=== PATIENT | female | born 1935 | race Caucasian/White ===

== ENCOUNTER → 2016-07-07 | Outpatient (CLI) | payer OTHER ==
[~2016-07-07] VITALS: Ht 162.6 cm; Wt 79.7 kg
[~2016-07-07] MED LIST: ADULT LOW DOSE81 MG PO; ALLOPURINOL 10100 M1 PO; ASPIRIN EC81 M1 PO; CALCIUM OYSTER500 MG PO; CELEXA 10 MG TA10 M1 PO; CLONIDINE PO; DARVOCET-N 1001 EAC1 PO; EFFIENT10 MG PO; GABAPENTIN100 MG PO; GLUCOSAMINE HC500 MG PO; HYDRALAZINE 2525 M1 OR; HYDRALAZINE 2525 M1 PO; KLOR-CON 1010 MEQ PO; METHADONE HCL 110 M1 PO; METHADONE HCL 110 MG PO; NEURONTIN 300M300 M2 PO; OMEPRAZOLE 20 M20 M1 PO; REMERON15 MG PO; SIMVASTATIN40 MG PO; SYNTHROID100 MCG PO; TUMS PO; ZANTAC 150MG T150 M1 PO
--- NOTE | ~2016-07-07 | HPC ---
[facility] [place] [address] PAIN MANAGEMENT CONSULTATION Name: STEVEN DORAN Room #: REG [facility]#: [id number] Admission: 07/07/16 Attend Phys: Trevor Suresh MD Discharge: Date of : 33 Report #: [id number] THIS REPORT FOR: //name// CC: Shan Suresh DATE OF SERVICE: 07/07/2016 FOLLOWUP COMPLAINT: Here for another injection. FOLLOWUP HISTORY: The patient is a very pleasant 80-year-old female who has been seen in the pain clinic in the past. She has undergone epidural steroid injections. She has gleaned greater than 50% benefit from these procedures. She returns today indicating that she is having some increased pain in the left L5-S1 area. She rates her pain as a 5/10. She is having some difficulty walking and standing, all of which increased her pain and discomfort involving the left buttocks. She had not fallen in the last few months. She does note some weakness and finds use of a cane efficacious. PHYSICAL EXAMINATION: VITAL SIGNS: Blood pressure 146/71, pulse 87, respiratory rate 20 and room air O2 saturation is 97%. Height 5 feet 4 inches, weight 175 pounds, BMI is 30. MUSCULOSKELETAL: The patient has pain and discomfort radiating down into the left buttocks and posterior portion of the leg in the L5-S1 distribution. She notes numbness and weakness in this area. IMPRESSION: 1. Lumbar radiculopathy in the left L5-S1 distribution. 2. Status post instrumentation of the lower spine with rods at L4 and L5. 3. Hypothyroidism. 4. Hypercholesterolemia. RECOMMENDATIONS: We discussed the treatment options with the patient. Risks and benefits of another epidural steroid injection were discussed. Possible complications were reviewed. The patient would like to proceed. PROCEDURE NOTE: The patient was placed in the prone position. Fluoroscopy was used to identify the left L5-S1 nerve area. This area had been sterilely prepped with Betadine and infiltrated with 0.25% bupivacaine. Total of 80 mg Depo-Medrol, 40 mg triamcinolone and 2 mL of 0.25% bupivacaine was injected. The patient tolerated the procedure well. There were no complications. We would like to thank you for letting us participate in her care. We hope she continues to improve. A prescription for methadone 5 mg [place] [address] PAIN MANAGEMENT CONSULTATION Name: DORANSTEVEN HURD Room #: REG [facility]#: [id number] Admission: 07/07/16 Attend Phys: Trevor Suresh MD Discharge: Date of : 33 Report #: [id number] p.o. every day has been written. She will follow up in the future as needed. A total of 4 seconds fluoroscopy time was used. By: [id number] Trevor Suresh MD /marianela
[2016-07-07 10:10] VITALS: BP 146/71
== END ==
LOC: PAIN 07:28
DX: M54.16 Radiculopathy, lumbar region (principal); E78.5 Hyperlipidemia, unspecified; E78.00 Pure hypercholesterolemia, unspecified

== ENCOUNTER → 2016-08-06 | Outpatient (CLI) | payer OTHER ==
[~2016-08-06] VITALS: Ht 167.6 cm; Wt 78.1 kg
--- NOTE | ~2016-08-06 | HPC ---
[facility] [place] [address] PAIN MANAGEMENT CONSULTATION Name: STEVEN DORAN Room #: REG [facility]#: [id number] Admission: 08/06/16 Attend Phys: Trevor Suresh MD Discharge: Date of : 33 Report #: [id number] THIS REPORT FOR: //name// CC: REZA Suresh DATE OF SERVICE: 08/06/2016 FOLLOWUP COMPLAINT: Pain is improved after the last injection, but has worsened over the last few weeks. FOLLOWUP HISTORY: The patient is a very pleasant 80-year-old female who has been seen in the pain clinic because of lumbar radiculopathy. As you recall, she has undergone epidural steroid injections and gleaned greater than 50% improvement. She notes that her pain is a 2 at this point, but has noted some pain radiating down into her buttocks with numbness and tingling involving the left leg more so today than right. She has not fallen since we saw her last. She does find that she continues to have some weakness and ambulates with use of her cane. PHYSICAL EXAMINATION: Blood pressure 123/70, pulse 88, respiratory rate 16, room air saturation is 95%. Height is 5 feet 6 inches, weight 78 kilograms. BMI is 27. The patient has pain and discomfort radiating down into the lumbar area with more discomfort on the left today. IMPRESSION: 1. Lumbar radiculopathy in the left L5-S1 distribution. 2. Status post instrumentation of the lower spine with rods at the L4-L5 area. 3. Hypothyroidism. 4. Hypercholesterolemia. RECOMMENDATIONS: We discussed treatment options with the patient. Risks and benefits of an epidural steroid injection were again discussed. Possible complications which could include but are not limited to infection, increased muscle soreness, headache, bleeding, muscle trauma, nerve trauma were explained. The patient elects to proceed. PROCEDURE NOTE: The patient was placed in the prone position. Fluoroscopy was used to identify the L5-S1 distribution and at this level, a midline 17-gauge Tuohy with loss of resistance technique was used to gain access to the epidural space. There was no CSF, heme or paresthesia. A total of 80 mg Depo-Medrol, 40 mg triamcinolone and 2 mL of 0.25% bupivacaine was injected. The patient tolerated the procedure well. [place] [address] PAIN MANAGEMENT CONSULTATION Name: STEVEN DORAN Room #: REG [facility]#: [id number] Admission: 08/06/16 Attend Phys: Trevor Suresh MD Discharge: Date of : 33 Report #: [id number] We would like to thank you for letting us participate in her care. We hope she continues to improve. By: [id number] Trevor Suresh MD /nt
[2016-08-06 10:35] VITALS: BP 123/70
== END | disposition home or self-care (01) ==
LOC: PAIN 05:51
DX: M54.16 Radiculopathy, lumbar region (principal); G89.29 Other chronic pain; E03.9 Hypothyroidism, unspecified; E78.00 Pure hypercholesterolemia, unspecified; Z98.890 Other specified postprocedural states

== ENCOUNTER → 2017-07-06 | Outpatient (CLI) | payer OTHER ==
[~2017-07-06] VITALS: Ht 165.1 cm; Wt 70.9 kg
--- NOTE | ~2017-07-06 | HPC ---
[facility] [place] [address] [place] [address] PAIN MANAGEMENT CONSULTATION Name: STEVEN DORAN Room #: REG [facility].#: [id number] Admission: 07/06/17 Attend Phys: Trevor Suresh MD Discharge: Date of : 33 Report #: [id number] THIS REPORT FOR: //name// CC: Shan Suresh DATE OF SERVICE: 07/06/2017 FOLLOWUP COMPLAINT: "I would like to get my medications renewed and having pain that is going down into my right leg." FOLLOWUP HISTORY: The patient is an 81-year-old female, who has been seen and followed in the pain clinic because of lumbar radiculopathy. As you recall, she has had problems with her low back. She has had placement of rods and screws in the lower portion of her back for stabilization. She still has pain and discomfort, which can be problematic. She rates her pain overall as a 5/10 today. It involves the lower portion of her back with pain radiating down into the right leg. Notes that she has continued to have some difficulty walking. She does ambulate with use of a cane. Denies any problems with her medications. She feels that the methadone has worked quite well for over the years. She is taking 5 mg 1 p.o. b.i.d. This is successful in helping decrease pain and discomfort. She tries to stay as active as possible. She does note that activities of daily living are somewhat curtailed secondary to her pain. Pain is exacerbated with walking as well as prolonged standing. Rest, use of medication, and repositioning can be of some assistance. ALLERGIES: No known drug allergies. CURRENT MEDICATIONS: 1. Methadone 10 mg one-half tablet daily a.m. and p.m. 2. Celexa 10 mg daily. 3. Glucosamine 500 mg, total of 1500 mg in the evening. 4. Omeprazole 20 mg. 5. Calcium/Tums. 6. Remeron 15 mg at bedtime. 7. Allopurinol 100 mg. 8. Aspirin 81 mg. 9. Simvastatin 40 mg. 10. Neurontin 300 mg b.i.d. 11. Synthroid 100 mcg. PAIN CLINIC ASSESSMENT: 1. History of osteoarthritis with some hadley placements and intertrochanteric screws. 2. Height 5 feet 5 inches. Weight 156 pounds, BMI [place] [address] PAIN MANAGEMENT CONSULTATION Name: STEVEN DORAN Room #: REG [facility]#: [id number] Admission: 07/06/17 Attend Phys: Trevor Suresh MD Discharge: Date of : 33 Report #: [id number] 3. Vital Signs: Blood pressure is 114/73, pulse 102, respiratory rate 20, room air saturation is 96%. 4. Pain intensity 5/10. 5. Fall Risk: The patient has not fallen in the last 3 months. She does need some assistance with walking and uses a cane. 6. The patient is not on a blood thinner 7. History of hypertension. The patient is not being treated for hypertension. 8. Opioid therapy, greater than 6 weeks. The patient has signed a contract and gets her medication from only one source. 9. Risk assessment tool, 0 which is low. 10. Functional assessment tool, 35/70 with mild encumbrance of activities of daily living secondary to pain. 11. Recreational use of drugs: The patient denies. 12. Tobacco: The patient has never smoked. 13. Alcohol: The patient denies use of alcoholic beverages. PHYSICAL EXAMINATION: GENERAL: The patient is a well-developed white female. Appears her stated age. She is alert and oriented x 3. Affect is appropriate. Speech is fluent. HEENT: The patient is wearing glasses. Sclerae are nonicteric. Mucous membranes are moist. Hearing is within normal limits, may be decreased. NECK: Without adenopathy or JVD. HEART: Regular rate. ABDOMEN: Nontender. NEUROLOGIC: Upper motor strength is judged to be 4+/5 in the upper extremities. Lower muscle strength is judged to be generally 5/5 for the major muscle groups. The patient has some loss of muscle in the lower extremities. She walks with an antalgic gait using a cane. Has well healed scars in the lower portion of her back. MUSCULOSKELETAL: Has lumbar lordosis, complains of pain and discomfort radiating down into the L5-S1 dermatomal distribution on the right. IMPRESSION: 1. Lumbar radiculopathy, L5-S1 distribution involving the legs bilaterally, right side more problematic. 2. Status post instrumentation lower back with rods and the L4-L5 area with stabilization. 3. Hypothyroidism. 4. Hypercholesterolemia. 5. Gout. RECOMMENDATIONS: We discussed treatment options with the patient. Risks and benefits of an epidural steroid injection were again reviewed. Possible complications were discussed. The patient states that she has driven herself today. She feels that she is able to drive home without problems. She would like to proceed with an epidural steroid injection given that she is continuing [facility] [address] [place] [address] PAIN MANAGEMENT CONSULTATION Name: STEVEN DORAN Room #: REG [facility]#: [id number] Admission: 07/06/17 Attend Phys: Trevor Suresh MD Discharge: Date of : 33 Report #: [id number] to have pain and discomfort, which is problematic and radiating down into her right leg. Feels that her medications of methadone 5 mg b.i.d. is adequate and efficacious. She does not have any problems with mentation or bowel or bladder dysfunction at this juncture secondary to use of opioids. She would like to proceed with an epidural steroid injection and the risks and benefits were discussed. They include, but are not limited to infection, increased muscle soreness, headache, bleeding, nerve damage, spinal headache, paralysis. The patient elects to proceed. PROCEDURE NOTE: The patient was placed in the prone position. Fluoroscopy was used to identify the L5-S1 area. This area had been sterilely prepped with Betadine and infiltrated with 0.25% bupivacaine. Fluoroscopy using the anterior, posterior as well as lateral viewing was used to assist in placement of the injection. This area was infiltrated with 0.25% bupivacaine. A 17-gauge Tuohy with loss of resistance technique was used to gain access to the epidural space. There was no CSF, heme or paresthesia. A total of 80 mg Depo-Medrol, 40 mg triamcinolone and 2 mL of 0.25% bupivacaine was injected. A Band-Aid was placed in the injection site. There was no bleeding. The patient was then assisted to the recovery area where she remained for an appropriate amount of time. There were no complications. She remained in the pain clinic for an appropriate amount of time. Total of 7 seconds fluoro time was used. The patient's pain was 5 at the time of discharge. She will follow up in the future as needed. We would like to thank you for letting us participate in her care. We hope she continues to improve. By: [id number] Trevor Suresh MD /KYRIE
[2017-07-06 11:13] VITALS: BP 114/73
== END | disposition home or self-care (01) ==
LOC: PAIN 07:02
DX: M51.16 Intervertebral disc disorders with radiculopathy, lumbar region (principal); E03.9 Hypothyroidism, unspecified; E78.00 Pure hypercholesterolemia, unspecified; M10.9 Gout, unspecified; I10 Essential (primary) hypertension; M19.90 Unspecified osteoarthritis, unspecified site; Z79.899 Other long term (current) drug therapy

== ENCOUNTER → 2018-01-04 | Outpatient (CLI) | payer OTHER ==
[~2018-01-04] VITALS: Ht 165.1 cm; Wt 76.2 kg
[2018-01-04 13:11] VITALS: BP 112/72
== END | disposition home or self-care (01) ==
LOC: PAIN 07:08
DX: M54.16 Radiculopathy, lumbar region (principal); Z79.899 Other long term (current) drug therapy

== ENCOUNTER → 2018-07-05 | Outpatient (CLI) | payer OTHER ==
[~2018-07-05] VITALS: Ht 167.6 cm; Wt 71.7 kg
[2018-07-05 13:00] VITALS: BP 137/63
--- NOTE | 2018-07-05 13:06 | NUR ---
Pain Clinic Assessment: 1. History of Osteoarthritis: YES History of Rheumatoid Arthritis: Not Applicable 2. Height: 5 ft. 6 in. 167.6 cm. Weight: 158.0 lb. oz. 71.668 kg. Patient's BMI: 25.5 3. Vital Signs: BP: 137/63 Pulse: 96 Resp: 18 Temp: 02 Sat: 97 ECG Mon: 4. Pain Intensity: 5 5. Fall Risk: Dizziness: N Needs help standing or walking: N Fallen in the last 3 months: N Fall risk comments: 6. Patient on Blood Thinner: None 7. History of Hypertension: N 8. Opioid Therapy greater than 6 weeks: Y Opiate Contract Signed: 07/06/17 9. Risk Assessment Tool Provided: 0 LOW RISK 10. Functional Assessment Tool: /70 11. Recreational Drug Use: Never Drug Type: Tobacco Use: Never Smoker Tobacco Type: Amount or Packs/day: How Many Years: Alcohol Use: No Frequency: Quant:
== END | disposition home or self-care (01) ==
LOC: PAIN 07:11
DX: M54.16 Radiculopathy, lumbar region (principal); Z79.899 Other long term (current) drug therapy; Z79.82 Long term (current) use of aspirin

== ENCOUNTER → 2018-12-20 | Outpatient (CLI) | payer OTHER ==
[~2018-12-20] VITALS: Ht 167.6 cm; Wt 72.6 kg
[~2018-12-20] MED LIST changes: +MAGNESIUM OXID500 M1 PO; +PRESERVISION T1 EACH PO
[2018-12-20 12:01] VITALS: BP 139/73
--- NOTE | 2018-12-20 12:15 | NUR ---
Pain Clinic Assessment: 1. History of Osteoarthritis: YES-BUT DOESN'T KNOW WHERE PROBABLY ALL THROUGH BODY History of Rheumatoid Arthritis: Not Applicable 2. Height: 5 ft. 6 in. 167.6 cm. Weight: 160.0 lb. oz. 72.576 kg. Patient's BMI: 25.8 3. Vital Signs: BP: 139/73 Pulse: 75 Resp: 14 Temp: 02 Sat: 99 ECG Mon: 4. Pain Intensity: 6 5. Fall Risk: Dizziness: N Needs help standing or walking: Y Fallen in the last 3 months: Y Fall risk comments: 6. Patient on Blood Thinner: None 7. History of Hypertension: N 8. Opioid Therapy greater than 6 weeks: Y Opiate Contract Signed: 07/06/17 9. Risk Assessment Tool Provided: 0 LOW RISK 10. Functional Assessment Tool: /70 11. Recreational Drug Use: Never Drug Type: Tobacco Use: Never Smoker Tobacco Type: Amount or Packs/day: How Many Years: Alcohol Use: No Frequency: Quant:
--- NOTE | 2019-01-19 08:25 | HPC ---
[facility] [address] [place] [address] PAIN MANAGEMENT CONSULTATION Name: STEVEN DORAN Feliciano Room #: REG [facility] [place]#: [id number] Admission: 12/20/18 Attend Phys: Trevor Suresh MD Discharge: Date of : 33 Report #: [id number] THIS REPORT FOR: //name// CC: Shan Suresh DATE OF SERVICE: 12/20/2018 CHIEF COMPLAINT: Return of back pain down the left leg and here for medication renewal. HISTORY: The patient is a very pleasant 83-year-old female who has been followed in the pain clinic because of chronic low back pain. As you recall, she has had back pain. She has undergone back surgery with placement of stabilization rods and screws in the low back area. She continues to have pain that can be problematic. Pain at this juncture is primarily on the left side. It radiates down into the left leg in the posterior portion of her leg. Notes that this pain makes activities of daily living more problematic. Epidural steroid injection in the past have been helpful. She has returned today with the hopes of undergoing another epidural steroid injection in hopes that her pain will improve. She has pain in the lower portion of her back, it has been on the left and the right side and feels at this point that the right side might be more problematic today. Rates it as a 6/10. It is exacerbated with the weather. She also feels that it is "worst because of "just life." The patient is hoping for a shot hoping that her pain will improve. ALLERGIES: No known drug allergies. CURRENT MEDICATIONS: Methadone 10 mg 1-1/2 tablets (5 mg a.m. and p.m), Celebrex 10 mg daily, glucosamine 500 mg for a total of 1500 mg in the evening, omeprazole 20 mg, calcium, Remeron 15 mg at bedtime, allopurinol 100 mg, aspirin 81 mg, simvastatin 40 mg, Neurontin 300 mg b.i.d., Synthroid 100 mg. PAIN CLINIC ASSESSMENT AND PQRS: 1. History of osteoarthritis and arthritic changes in the lower portion of the back. The patient has placement of the intertrochanteric screws as well as rods. She is not being treated for rheumatoid arthritis. 2. Height 5 feet 6 inches, weight 160 pounds, BMI is 25.8. 3. Vital signs: Blood pressure 139/73, pulse 75, respiratory rate 14, room air saturation 99%. 4. Pain intensity is 6/10. 5. Fall history: The patient has not fallen in the last 3 months. 6. Blood thinner. The patient is not on a blood thinning medication. 7. Opioids greater than 6 weeks. The patient has received medications through the pain clinic. 8. Risk assessment tool, low for opioid use. [address] [address] PAIN MANAGEMENT CONSULTATION Name: STEVEN DORAN Feliciano Room #: REG [facility]#: [id number] Admission: 12/20/18 Attend Phys: Trevor Suresh MD Discharge: Date of : 33 Report #: [id number] 9. Functional assessment tool is low. 10. Functional assessment tool. 11. Recreational drug use: The patient denies. 12. Tobacco: The patient has never smoked. 13. Alcohol. The patient denies frequent use of alcoholic beverages. PHYSICAL EXAMINATION: GENERAL: The patient is a well-developed, well-nourished white female. She appears her stated age. She is alert and oriented x 3. Her affect is appropriate. Speech is fluent. HEENT: Normocephalic, atraumatic. Extraocular eye muscles intact. Sclerae nonicteric. Mucous membranes are moist. The patient is wearing glasses. HEART: Regular rate. S1, S2. ABDOMEN: Nontender. Bowel sounds present. EXTREMITIES: Upper extremity muscle strength judged to be 4+/5 for the major muscle groups in the upper extremity. Lower extremity muscle strength judged to be 5-/5 for the major muscle groups in the lower extremity. The patient has an antalgic gait. Walks using a cane. Has a well-healed scar in the lower portion of her back. The patient is without significant scoliosis, kyphosis or lordosis. The patient has pain that is radiating down the right side in the L5-S1 dermatomal distribution. IMPRESSION: 1. Lumbar radiculopathy. 2. L5-S1 areas involved with both left and right legs involve. 3. Status post instrumentation lower extremity with rods and intramedullary screws at L4-L5 for stabilization. 3. Hypothyroidism. 4. Hypercholesterolemia. 5. Gout. RECOMMENDATIONS: We discussed treatment options with the patient. At this juncture, we will continue with her medications. A script for her medications of methadone 5 mg one-half tablet of the 10 mg tablet daily. She will take the medication as prescribed. She is not having any problems with this medication is not causing any problems with her sensorium. Finds that this medication is helpful with the pain. We will proceed with an epidural steroid injection. The risks and benefits of an epidural steroid injection were again discussed. They include but are not limited to infection, worsening pain, no improvement in pain, muscle soreness, spinal headache, nerve damage and the patient elects to proceed. PROCEDURE NOTE: The patient was taken to the procedure area. She was then assisted in getting on the examination table. A pillow was placed under her abdomen to bolster and improve positioning. Fluoroscopy using anterior, posterior as well as lateral viewing were implemented. At the L5-S1 area, 0.25% [facility] [address] [place] [address] PAIN MANAGEMENT CONSULTATION Name: STEVEN DORAN Room #: REG [facility]#: [id number] Admission: 12/20/18 Attend Phys: Trevor Suresh MD Discharge: Date of : 33 Report #: [id number] bupivacaine was infiltrated. This area had been sterilely prepped. A 17-gauge Tuohy at the L5-S1 area was then advanced into the area of the L5-S1 space. Aspiration was negative. There was no heme or paresthesia. Total of 80 mg Depo-Medrol, 40 mg triamcinolone and 40 mg triamcinolone was injected. The patient tolerated the procedure well. There were no complications. She remained in the Pain Clinic for an appropriate amount of time. She will follow up in the future as needed. A total of 12 seconds fluoroscopy time was used. We would like to thank you for letting us participate in her care. We hope she continues to improve. <ELECTRONICALLY SIGNED> By: Trevor Suresh MD 01/19/19 0825 [id number] [id number] Trevor Suresh MD /nt
== END | disposition home or self-care (01) ==
LOC: PAIN 07:03
DX: M54.5 Low back pain (principal); G89.29 Other chronic pain; M54.16 Radiculopathy, lumbar region; E03.9 Hypothyroidism, unspecified; E78.00 Pure hypercholesterolemia, unspecified; M10.9 Gout, unspecified; Z98.890 Other specified postprocedural states; Z79.899 Other long term (current) drug therapy; Z79.82 Long term (current) use of aspirin

== ENCOUNTER → 2019-04-18 | Outpatient (CLI) | payer OTHER ==
[~2019-04-18] VITALS: Ht 165.1 cm; Wt 76.7 kg
[2019-04-18 12:38] VITALS: BP 123/65
--- NOTE | 2019-04-18 12:40 | NUR ---
Pain Clinic Assessment: 1. History of Osteoarthritis: YES-BUT DOESN'T KNOW WHERE PROBABLY ALL THROUGH BODY History of Rheumatoid Arthritis: Not Applicable 2. Height: 5 ft. 5 in. 165.1 cm. Weight: 169.2 lb. oz. 76.749 kg. Patient's BMI: 28.2 3. Vital Signs: BP: 123/65 Pulse: 108 Resp: 16 Temp: 02 Sat: 96 ECG Mon: 4. Pain Intensity: 5 5. Fall Risk: Dizziness: N Needs help standing or walking: N Fallen in the last 3 months: N Fall risk comments: 6. Patient on Blood Thinner: None 7. History of Hypertension: N 8. Opioid Therapy greater than 6 weeks: Y Opiate Contract Signed: 07/06/17 9. Risk Assessment Tool Provided: 0 LOW RISK 10. Functional Assessment Tool: 11. Recreational Drug Use: Never Drug Type: Tobacco Use: Never Smoker Tobacco Type: Amount or Packs/day: How Many Years: Alcohol Use: No Frequency: Quant:
--- NOTE | 2019-04-25 13:33 | HPC ---
[facility] [place] [address] PAIN MANAGEMENT CONSULTATION Name: STEVEN DORAN Room #: REG [facility]#: [id number] Admission: 04/18/19 Attend Phys: Trevor Suresh MD Discharge: Date of : 33 Report #: [id number] THIS REPORT FOR: cc: Shan Matthews MD, Cabot L. MD Brown,Trevor Clarke MD ~ THIS REPORT FOR: //name// CC: Shan Suresh DATE OF SERVICE: 04/18/2019 CHIEF COMPLAINT: Low back and still in my right leg and I am here for my medication renewal. HISTORY: The patient is an 83-year-old female who has been followed in the pain clinic because of chronic pain. As you may recall, she has undergone back surgery. Nicolás and screws have been placed in her low back for stabilization. Continues to have some pain and discomfort. Epidural steroid injections on occasion have been provided to decrease her pain and discomfort. Overall, she feels that things are going reasonably well today. She would like to have her medications renewed. Should her pain worsen, she will return and undergo an epidural injection. She had no complications from the procedures. Notes that the weather has changed and is cold outside that has exacerbated her pain and discomfort. Pain involves her right leg, right buttocks, and lumbar area. ALLERGIES: No known drug allergies. CURRENT MEDICATIONS: Methadone 10 mg 1-1/2 tablets daily, 5 mg a.m. and 5 mg p.m., Celebrex 100 mg daily, glucosamine 500 mg for a total of 1500 mg in the evening, omeprazole 20 mg, calcium, Remeron 15 mg at bedtime, allopurinol 100 mg, aspirin 81 mg, simvastatin 40 mg, Neurontin 300 mg b.i.d., and Synthroid 100 mg. PAIN CLINIC ASSESSMENT AND PQRS: 1. 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 She has had surgery in the low back area. She has inter-trochanteric screws with rods. She is not being treated for rheumatoid arthritis. 2. Height 5 feet 5 inches, weight 169 pounds, BMI is 28.2. 3. Vital Signs: Blood pressure 123/65, pulse 108, respiratory rate 16, room air saturation 96%. 4. Pain intensity 5/10. 5. Fall history: The patient has not fallen. 6. Blood thinner. The patient is not on a blood thinning medication. 7. Hypertension. The patient is not being [place] [address] PAIN MANAGEMENT CONSULTATION Name: STEVEN DORAN Room #: REG [facility]#: [id number] Admission: 04/18/19 Attend Phys: Trevor Suresh MD Discharge: Date of : 33 Report #: [id number] 8. Opioids greater than 6 weeks. The patient received medication from one source, pain clinic. 9. Risk assessment tool, low for opioids. 10. Functional assessment tool 35/70. 11. Recreational drug use: The patient denies. 12. Alcohol: The patient denies frequent use of alcoholic beverages. PHYSICAL EXAMINATION: GENERAL: The patient is a well-developed, well-nourished white female. Appears her stated age of 84 years. She is alert and oriented x 3. Her affect is appropriate. Speech is fluent. HEENT: Normocephalic, atraumatic. Extraocular eye muscles intact. The patient is wearing glasses. HEART: Regular rate. ABDOMEN: Nontender. Bowel sounds present. EXTREMITIES: Upper extremity muscle strength judged to be 4/5 for the major muscle groups in the upper extremity. Lower extremity muscle strength 5-/5 for the major muscle groups in the lower extremity. The patient ambulates using a cane. She has a well-healed scar in the lower portion of her back from surgery in lumbar area. The patient without significant scoliosis, kyphosis, or lordosis. The patient has pain that radiates down in the right L5-S1 dermatomal distribution. IMPRESSION: 1. Lumbar radiculopathy. 2. History of L5-S1 involvement in both left and right legs. 3. Status post instrumentation of the lower extremity with rods and intramedullary screws at L4-L5 for stabilization. 4. Hypothyroidism. 5. Hypercholesterolemia. 6. Gout. RECOMMENDATIONS: We discussed treatment options with the patient. At this juncture, she feels that her medications are working reasonably well. She will consider an epidural injection in the future should it be needed. She would like to have her medications renewed. She feels that the methadone medication continues to be helpful. She is not having any problems with mentation. She is thinking clearly. She is aware that opioid medications can over a period of time become less effective. She is aware that some people can develop addiction as a result of opioid use. She does not show any signs of addiction. She finds that this medication enables her to engage in activities of daily living, which would be much more problematic without its use. We have provided a script for methadone one-half p.o. b.i.d., 10 mg tablets have been dispensed, she will break the 10mg pills into into [address] [address] PAIN MANAGEMENT CONSULTATION Name: STEVEN DORAN Room #: [facility]#: [id number] Admission: 04/18/19 Attend Phys: Trevor Suresh MD Discharge: Date of : 33 Report #: [id number] We would like to thank you for letting us participate in her care. The patient has been given scripts to cover the next 3 months. Questions were sought of the patient and I answered. <ELECTRONICALLY SIGNED> By: Trevro Suresh MD 04/25/19 1333 [id number] Trevor Suresh MD /nt
== END ==
LOC: PAIN 06:50
DX: M54.16 Radiculopathy, lumbar region (principal); E03.9 Hypothyroidism, unspecified; E78.00 Pure hypercholesterolemia, unspecified; M10.9 Gout, unspecified; Z79.899 Other long term (current) drug therapy

== ENCOUNTER → 2019-09-19 | Outpatient (CLI) | payer OTHER ==
[~2019-09-19] VITALS: Ht 162.6 cm; Wt 78.7 kg
[~2019-09-19] MED LIST changes: +TUMS200 MG PO
[2019-09-19 12:44] VITALS: BP 141/68
--- NOTE | 2019-09-19 12:47 | NUR ---
Pain Clinic Assessment: 1. History of Osteoarthritis: YES-BUT DOESN'T KNOW WHERE PROBABLY ALL THROUGH BODY History of Rheumatoid Arthritis: Not Applicable 2. Height: 5 ft. 4 in. 162.6 cm. Weight: 173.6 lb. oz. 78.744 kg. Patient's BMI: 29.8 3. Vital Signs: BP: 141/68 Pulse: 94 Resp: 18 Temp: 02 Sat: 96 ECG Mon: 4. Pain Intensity: 5 5. Fall Risk: Dizziness: N Needs help standing or walking: N Fallen in the last 3 months: N Fall risk comments: 6. Patient on Blood Thinner: None 7. History of Hypertension: N 8. Opioid Therapy greater than 6 weeks: Y Opiate Contract Signed: 07/06/17 9. Risk Assessment Tool Provided: 0 LOW RISK 10. Functional Assessment Tool: 11. Recreational Drug Use: Never Drug Type: Tobacco Use: Never Smoker Tobacco Type: Amount or Packs/day: How Many Years: Alcohol Use: No Frequency: Quant:
--- NOTE | 2019-10-05 08:56 | HPC ---
[facility] [address] [place] [address] PAIN MANAGEMENT CONSULTATION Name: STEVEN DORAN Room #: REG [facility]#: [id number] Admission: 09/19/19 Attend Phys: Trevor Suresh MD Discharge: Date of : 33 Report #: [id number] THIS REPORT FOR: cc: Shan Matthews MD, Cabot L. MD Brown,Trevor Clarke MD ~ CC: Shan Suresh DATE OF SERVICE: 09/19/2019 CHIEF COMPLAINT: Here for medication renewal. HISTORY: The patient is an 83-year-old female who has been followed in the pain clinic for low back and leg pain. She returns today indicating that she is having some lower back discomfort. She has been doing back exercises. She rates her pain as a 5/10. She has returned today for refill on her medications. Overall, things are going reasonably well. Notes that the pain is worse with weather changes. She can experience more discomfort with walking and activities. She describes it as sharp, aching, and radiating pain. She would like to renew her medications. She is having no complications from their use. ALLERGIES: No known drug allergies. CURRENT MEDICATIONS: Methadone 10 mg 1-1/2 tablets daily; 5 mg a.m., 5 mg p.m., Celebrex 100 mg daily, glucosamine 500 mg, total of 1500 mg in the evening, omeprazole 20 mg, calcium, Remeron 15 mg at bedtime, allopurinol 100 mg, aspirin 81 mg, simvastatin 40 mg, Neurontin 300 mg b.i.d., Synthroid 100 mg. PAIN CLINIC ASSESSMENT AND PQRS: 1. The patient has osteoarthritic changes in her low back area. She has had surgery in the low back area. She has intertrochanteric screws with rods. She is not being treated for rheumatoid arthritis. 2. Height is 5 feet 4 inches, weight 173 pounds, BMI is 29. 3. Vital signs: Blood pressure 141/68, pulse 94, respiratory rate 18, room air saturation is 96%. 4. Pain intensity, 10. 5. Fall history. The patient has not fallen in the last 3 months. 6. Blood thinner. The patient is not on a blood thinning medication. 7. Hypertension. The patient is not being treated for hypertension. 8. Opioids greater than 6 weeks. The patient received medication from the pain clinic. 9. Risk assessment tool, low for opioid use. 10. Functional assessment tool, 35/70. 11. Recreational drug use. The patient denies. 12. Tobacco. The patient has never smoked. [address] [address] PAIN MANAGEMENT CONSULTATION Name: STEVEN DORAN [facility] [id number] Admission: 09/19/19 Attend Phys: Trevor Suresh MD Discharge: Date of : 33 Report #: [id number] 13. Alcohol. The patient denies frequent use of alcoholic beverages. PHYSICAL EXAMINATION: GENERAL: The patient is a well-developed, well-nourished, white female. Appears her stated age of 83 years. She is alert and oriented x 3. Her affect is appropriate. Speech is fluent. HEENT: Normocephalic, atraumatic. Extraocular eye muscles intact. Sclerae nonicteric. Mucous membranes are moist. The patient is wearing glasses. The patient has a mask in place. HEART: Regular rate. ABDOMEN: Nontender. LUNGS: Generally clear. EXTREMITIES: Upper extremity muscle strength 4/5 for the major muscle groups in the upper extremity. Lower extremity muscle strength 5-/5 for the major muscle groups in the lower extremity. The patient ambulates using her cane. Has a well-healed scar in the lower portion of her back, status post surgery in the lumbar area. The patient without significant scoliosis, kyphosis or lordosis. Has pain that radiates down the L5-S1 dermatomal distribution. IMPRESSION: 1. History of lumbar radiculopathy. 2. History of L5-S1 involvement in the left and right legs. 3. Status post instrumentation of the lower extremity with rods and intramedullary screws at L4-L5 stabilization. 4. Hypothyroidism. 5. Hypercholesterolemia. 6. Gout. RECOMMENDATIONS: We discussed treatment options with the patient. At this juncture, she feels that things are going reasonably well. She does not feel that she needs to undergo an epidural injection. She would like to have her medications renewed. A script for her medications have been rewritten. She will continue with methadone 10 mg 1-1/2 tablets a day. She will take 5 mg 3 times daily. She will call us if she has any concerns. She will also continue with Neurontin 300 mg b.i.d. A script for these 2 medications have been provided. The patient is not showing any signs of addiction. She has taken her medication as prescribed. She will call us if she has any concerns. Overall, things are going on about as well as she could expect given her history. We would like to thank you for letting us participate in her care. <ELECTRONICALLY SIGNED> By: Trevor Suresh MD 10/05/19 0856 [id number] 0145 Trevor Suresh MD /KYRIE
== END ==
LOC: PAIN 06:54
PROVIDERS: ATTEND Anesthesiology Pain Medicine
DX: M54.5 Low back pain (principal); M79.606 Pain in leg, unspecified; E03.9 Hypothyroidism, unspecified; E78.00 Pure hypercholesterolemia, unspecified; M10.9 Gout, unspecified; F11.20 Opioid dependence, uncomplicated; Z86.79 Personal history of other diseases of the circulatory system; Z79.899 Other long term (current) drug therapy

== ENCOUNTER → 2020-04-09 | Outpatient (CLI) | payer OTHER ==
[~2020-04-09] VITALS: Ht 162.6 cm; Wt 79.7 kg
[2020-04-09 10:04] VITALS: BP 126/78
--- NOTE | 2020-04-09 10:24 | NUR ---
Pain Clinic Assessment: 1. History of Osteoarthritis: YES-BUT DOESN'T KNOW WHERE PROBABLY ALL THROUGH BODY History of Rheumatoid Arthritis: Not Applicable 2. Height: 5 ft. 4 in. 162.6 cm. Weight: 175.8 lb. oz. 79.742 kg. Patient's BMI: 30.2 3. Vital Signs: BP: 126/78 Pulse: 96 Resp: 16 Temp: 02 Sat: 97 ECG Mon: 4. Pain Intensity: 5 5. Fall Risk: Dizziness: N Needs help standing or walking: Y Fallen in the last 3 months: N Fall risk comments: 6. Patient on Blood Thinner: None 7. History of Hypertension: N 8. Opioid Therapy greater than 6 weeks: Y Opiate Contract Signed: 07/06/17 9. Risk Assessment Tool Provided: 0 LOW RISK 10. Functional Assessment Tool: 11. Recreational Drug Use: Never Drug Type: Tobacco Use: Never Smoker Tobacco Type: Amount or Packs/day: How Many Years: Alcohol Use: No Frequency: Quant:
--- NOTE | 2020-04-09 16:02 | HPC ---
[facility] [address] [place] [address] PAIN MANAGEMENT CONSULTATION Name: STEVEN DORAN Room #: REG [facility]#: [id number] Admission: 04/09/20 Attend Phys: Myrna Mtz Discharge: Date of : 33 Report #: [id number] THIS REPORT FOR: cc: Shan Matthews MD, Cabot L. MD Hocker, Amanda CNS ~ DATE OF SERVICE: 04/09/2020 CHIEF COMPLAINT: Chronic low back pain and lumbar radiculopathy. HISTORY OF PRESENT ILLNESS: This is an 84-year-old female who returns to the pain clinic today for refill of her methadone. She finds this very beneficial in helping her low back pain that does radiate down her right leg. She characterizes it as an aching, sharp pain that is worse with weather changes or significant walking. With the methadone, she is able to carry out her activities of daily living and take care of her own house. She is rating her pain score of 5/10. Most days, she does require one 5 mg tablet, but occasionally she will require two; therefore, her medications do last slightly longer than prescribed. She denies any significant constipation issues due to her low dose of opioid therapy. She does report calcium does increase her constipation. ALLERGIES: No known drug allergies. CURRENT LIST OF MEDICATIONS: Methadone 5 mg daily, calcium, PreserVision, and magnesium, Celexa, glucosamine, Remeron, Zyloprim, aspirin, Zocor, gabapentin, and Synthroid. PQRS: 1. She has osteoarthritic changes in her lower back. She denies any rheumatoid arthritis. 2. Height is 5 feet 4 inches, weight is 175, BMI is 30. 3. Vital signs 126/78, pulse is 96, respirations 16, oxygen sat is 97%. 4. Pain score is 5/10. 5. Denies dizziness. Does need assistance with a cane for ambulation, has not fallen in the last 3 months. 6. The patient is not on any blood thinners, but does take medicine for hypertension. Her opioid therapy is greater than 6 weeks; therefore, an opioid signed contract is on the chart. Risk assessment is low. Functional assessment is 35/70. 7. Recreational drug use, she denies. She is not a smoker and does not drink alcohol. According to the prescription monitoring system, her morphine mEq is less than 15 MMEs per day, filling them appropriately. [address] [address] PAIN MANAGEMENT CONSULTATION Name: STEVEN DORAN Room #: REG [facility]#: [id number] Admission: 04/09/20 Attend Phys: Myrna Mtz Discharge: Date of : 33 Report #: [id number] PHYSICAL EXAMINATION: GENERAL: This is a well-developed, well-nourished, well-hydrated 84-year-old female who appears younger than her stated age, placing her current pain score of 5/10. She is a good historian and her speech is fluent. HEENT: Normocephalic, atraumatic. Extraocular eye muscles are intact. Mucous membranes are moist. She is wearing a mask and glasses. EXTREMITIES: Upper extremity strength is slightly diminished as well as lower extremity. Does use a cane for ambulation. She has well-healed scar in her lumbar region of her back, status post surgery. She is without significant scoliosis, kyphosis or lordosis. Her pain generator follows the L5-S1 dermatomal distribution down the right leg. IMPRESSION: 1. Lumbar radiculopathy. 2. History of L5-S1 involvement of right leg, status post surgery. 3. Opioid medication following written agreement. We reviewed the fact that opiate medications are being used to provide analgesia adequate to support activities of daily living, not attempting to achieve a specific pain score on the 0-10 Visual Analog Scale. The current opiate medications are providing sufficient analgesia to allow the patient to participate in activities of daily living. The patient is not exhibiting any aberrant behavior suggestive of drug diversion. The patient is not having any adverse reactions to medications. The patient is not suffering from daytime somnolence or mental acuity changes. The patient is managing opiate-induced constipation with appropriate chbk-zzt-qbbjlae agents and dietary considerations. The patient was counseled on concern for caution with operating a motor vehicle while using opiate medications. A physical exam was performed and the patient's functional status was evaluated. All patients with back pain were advised against the bed rest greater than 4 days and were advised to return to normal activities. Pain score assessment was noted and the treatment plan was reviewed with the patient. All current medications, both prescribed and OTC were reviewed and reconciled on the electronic medical record. Tobacco screening was accomplished and smoking cessation was advised when indicated. BMI was noted and diet/exercise modification was recommended for all patients following outside normal parameters. I reviewed with the patient today their responsibilities to safeguard prescription medications, reviewed their responsibility to utilize medications only as prescribed by the physician. They are to seek and receive pain medications only from 1 physician group ([facility]). They are to use 1 pharmacy and keep the clinic informed if they change pharmacies. Their responsibilities include making followup visits in a timely fashion and to avoid abrupt discontinuation of medication usage. Their responsibilities further [address] [address] PAIN MANAGEMENT CONSULTATION Name: STEVEN DORAN Room #: REG [facility]#: [id number] Admission: 04/09/20 Attend Phys: Myrna Mtz Discharge: Date of : 33 Report #: [id number] include bringing their medications (bottles from the pharmacy with residual pills) to the visit for possible confirmation of pill counts and the patient understands it is their responsibility to submit to random drug screens to ensure both that the medications prescribed are present, and that no other controlled substances are present. All prescriptions provided today were generated electronically. RECOMMENDATIONS: 1. We discussed treatment options with the patient today. The patient feels that her current medications are very beneficial in helping her to keep as active as she would like. She would like to continue 5 mg of methadone daily. Occasionally, she will require 10 mg. This does not afford her any significant daytime somnolence or constipation. We will have Dr. Dirk Suresh send methadone 10 mg, #30, for release today, 4-week and 8-week release. 2. We did discuss the COVID vaccination that is available. The patient is on the list. I encouraged her to check her E-mail spam as well as call her primary doctor to see if they have any options for obtaining the COVID vaccine. 3. We will follow up with the patient in 3-6 months depending on her usage. She is seen today in collaboration with Dr. Suresh. <ELECTRONICALLY SIGNED> By: Myrna Mtz 04/09/20 1602 [id number] [id number] Myrna Mtz /marianela
== END ==
LOC: PAIN 06:52
PROVIDERS: ATTEND Clinical Nurse Specialist Adult Health
DX: M54.16 Radiculopathy, lumbar region (principal); G89.29 Other chronic pain; Z87.39 Personal history of other diseases of the musculoskeletal system and connective tissue

== ENCOUNTER → 2020-05-07 | Outpatient (CLI) | payer OTHER ==
[~2020-05-07] VITALS: Ht 165.1 cm; Wt 78.9 kg
[2020-05-07 12:32] VITALS: BP 145/77
--- NOTE | 2020-05-07 12:39 | NUR ---
Pain Clinic Assessment: 1. History of Osteoarthritis: spine History of Rheumatoid Arthritis: Not Applicable 2. Height: 5 ft. 5 in. 165.1 cm. Weight: 174.0 lb. oz. 78.926 kg. Patient's BMI: 29.0 3. Vital Signs: BP: 145/77 Pulse: 98 Resp: 16 Temp: 02 Sat: 94 ECG Mon: 4. Pain Intensity: 7 5. Fall Risk: Dizziness: N Needs help standing or walking: N Fallen in the last 3 months: N Fall risk comments: 6. Patient on Blood Thinner: None 7. History of Hypertension: N 8. Opioid Therapy greater than 6 weeks: Y Opiate Contract Signed: 07/06/17 9. Risk Assessment Tool Provided: 0 LOW RISK 10. Functional Assessment Tool: 11. Recreational Drug Use: Never Drug Type: Tobacco Use: Never Smoker Tobacco Type: Amount or Packs/day: How Many Years: Alcohol Use: No Frequency: Quant:
== END | disposition home or self-care (01) ==
LOC: PAIN 04-23 06:49
PROVIDERS: ATTEND Anesthesiology Pain Medicine
DX: M54.16 Radiculopathy, lumbar region (principal); G89.29 Other chronic pain; E03.9 Hypothyroidism, unspecified; E78.00 Pure hypercholesterolemia, unspecified; M19.90 Unspecified osteoarthritis, unspecified site; N18.4 Chronic kidney disease, stage 4 (severe); Z98.890 Other specified postprocedural states; Z79.899 Other long term (current) drug therapy; Z90.710 Acquired absence of both cervix and uterus; Z90.49 Acquired absence of other specified parts of digestive tract

== ENCOUNTER → 2021-01-30 | Outpatient (CLI) | payer OTHER ==
[~2021-01-30] VITALS: Ht 165.1 cm; Wt 78.6 kg
[2021-01-30 12:41] VITALS: BP 153/83
--- NOTE | 2021-01-30 12:48 | NUR ---
Pain Clinic Assessment: 1. History of Osteoarthritis: spine History of Rheumatoid Arthritis: Not Applicable 2. Height: 5 ft. 5 in. 165.1 cm. Weight: 173.2 lb. oz. 78.563 kg. Patient's BMI: 28.8 3. Vital Signs: BP: 153/83 Pulse: 93 Resp: 16 Temp: 02 Sat: 96 ECG Mon: 4. Pain Intensity: 5 5. Fall Risk: Dizziness: N Needs help standing or walking: N Fallen in the last 3 months: N Fall risk comments: 6. Patient on Blood Thinner: None 7. History of Hypertension: N 8. Opioid Therapy greater than 6 weeks: Y Opiate Contract Signed: 07/06/17 9. Risk Assessment Tool Provided: 0 LOW RISK 10. Functional Assessment Tool: 11. Recreational Drug Use: Never Drug Type: Tobacco Use: Never Smoker Tobacco Type: Amount or Packs/day: How Many Years: Alcohol Use: No Frequency: Quant:
== END ==
LOC: PAIN 11:21
PROVIDERS: ATTEND Anesthesiology Pain Medicine
DX: M54.16 Radiculopathy, lumbar region (principal); E03.9 Hypothyroidism, unspecified; M10.9 Gout, unspecified; E78.00 Pure hypercholesterolemia, unspecified; M79.662 Pain in left lower leg; Z90.710 Acquired absence of both cervix and uterus; Z79.899 Other long term (current) drug therapy; Z79.82 Long term (current) use of aspirin